=== PATIENT | male | born 1950 | race Two or more races ===

== ENCOUNTER 2022-12-28 13:48 | Emergency (ER) | payer OTHER ==
[~2022-12-28] VITALS: Ht 172.7 cm; Wt 83.5 kg
[2022-12-28] MEDS ORDERED: METFORMIN HCL1000 M2 PO (14:07)
[2022-12-28 16:47] LABS: HEMATOCRIT 40.1 % (39.0-48.0); HEMOGLOBIN 13.7 g/dL (13-16.00); MEAN CELL VOLUME 81.9 fL (80.0-100.00); MEAN CORPUSCULAR HEMOGLOBIN 27.9 pg (27.00-32.0); MEAN CORPUSCULAR HGB CONC 34.1 g/dl (32.0-36.0); PLATELET COUNT 316 K/uL (150-450)
[2022-12-28 16:50] LABS: URINE APPEARANCE Clear; URINE BILIRRUBIN Negative (NEGATIVE); URINE BLOOD Negative; URINE COLOR Yellow; URINE GLUCOSE Negative (NEGATIVE); URINE LEUKOCYTE Moderate; URINE NITRATE Negative; URINE PROTEIN 30 (NEGATIVE)
[2022-12-28 16:51] LABS: URINE BACTERIA 22.6 uL (0.0-1933); URINE EPITHELIAL CELLS 5.8 uL (0.0-38.8); URINE WBC 166.9 uL (0.0-23.2)
[2022-12-28 16:56] LABS: URINE RBC 1.2 uL (0.0-20.8)
[2022-12-28 17:06] LABS: CALCIUM 9.9 mg/dL (8.5-10.1); CREATININE SERUM 1.51 mg/dL (0.70-1.30); GFR 45.91; POTASSIUM 4.56 mEq/L (3.5-5.1)
== END 2022-12-28 19:24 | disposition home or self-care (01) ==
LOC: ER 13:48
PROVIDERS: General Practice
DX: E87.5 Hyperkalemia (principal); N18.9 Chronic kidney disease, unspecified; E11.9 Type 2 diabetes mellitus without complications; Z79.84 Long term (current) use of oral hypoglycemic drugs; Z20.822 Contact with and (suspected) exposure to COVID-19; I12.9 Hypertensive chronic kidney disease with stage 1 through stage 4 chronic kidney disease, or unspecified chronic kidney disease